=== PATIENT | female | born 1960 | race Caucasian/White ===

== ENCOUNTER 2017-04-19 22:54 | Inpatient (IN) | payer OTHER ==
[~2017-04-19] VITALS: Ht 167.6 cm; Wt 53.1 kg
--- NOTE | 2017-04-19 23:05 | NUR ---
Informed waiting has been performed.
--- NOTE | 2017-04-19 23:05 | NUR ---
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 -N/V/D. LNBM EARLIER TODAY. -URINARY S/S. REPORTS "I GOT OGIDA TOO". ONSET OF S/S AFTER EATING PASTA AND MEATBALL.
--- NOTE | 2017-04-19 23:28 | ED GI/GU/ABDOMINAL COMPLAINT ---
History of Present Illness General Chief Complaint: Abdominal Pain/Flank Pain Stated Complaint: ABD PAIN, X 3 HRS Source: patient Exam Limitations: no limitations Vital Signs & Intake/Output Vital Signs & Intake/Output Vital Signs Date Time Temp Pulse Resp B/P B/P Pulse O2 O2 Flow FiO2 Mean Ox Delivery Rate 04/20 0009 100 Room Air 04/19 2301 98.6 81 26 128/88 98 Room Air ED Intake and Output 04/20 0000 04/19 1200 Intake Total Output Total Balance Patient 117 lb Weight Weight Reported by Patient Measurement Method Allergies Uncoded Allergies: TURNIP (Severe, THROAT CLOSES 04/19/17) MACROBIN (Intermediate, "PNEUMONIA LIKE SYMPTOMS" 04/19/17) Reconcile Medications No Known Home Medications Triage Note: TRIAGE: PT TO ER WITH C/C DIFFUSE ABD PAIN, 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 -N/V/D. LNBM EARLIER TODAY. -URINARY S/S. REPORTS "I GOT OGIDA TOO". ONSET OF S/S AFTER EATING PASTA AND MEATBALL. Triage Nurses Notes Reviewed? yes ? n Is pt currently ? No Onset: Gradual Duration: hour(s): Timing: single episode today Quality/Severity: cramping Location: epigastric, generalized abdomen Radiation: no radiation Activities at Onset: eating Prior Abdominal Problems: none Modifying Factors: Worsens With: palpation, vomiting. Associated Symptoms: abdominal pain, nausea/vomiting HPI: 56 YO WOMAN presents with diffuse abdominal pain, nausea and vomiting after eating macarooni and meatballs. Her also notes that she had a bloody robert "which may have had some cayenne pepper in it." She has had the abdominal discomfort for the past 3 hours, and just began vomiting. She notes no diarrhea, fever, chills, dysuria, chest pain, shortness of breath. Last bowel movement was earlier this morning. Past History Travel History Traveled to [place] past 21 day No Medical History Any Pertinent Medical History? 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 No Review of Systems Review of Systems Constitutional: Reports: no symptoms. EENTM: Reports: no symptoms. Respiratory: Reports: no symptoms. Cardiovascular: Reports: no symptoms. GI: Reports: no symptoms. Genitourinary: Reports: no symptoms. Musculoskeletal: Reports: no symptoms. Skin: Reports: no symptoms. Neurological/Psychological: Reports: no symptoms. Hematologic/Endocrine: Reports: no symptoms. Immunologic/Allergic: Reports: no symptoms. All Other Systems: Reviewed and Negative Physical Exam Physical Exam General Appearance: well developed/nourished, moderate distress Head: atraumatic, normal appearance Eyes: Bilateral: normal appearance. Ears, Nose, Throat, Mouth: hearing grossly normal Neck: normal inspection, supple, full range of motion Respiratory: normal breath sounds, chest non-tender, no respiratory distress, quiet respiration, lungs clear Cardiovascular: regular rate/rhythm Gastrointestinal: decreased bowel sounds, but present. minimal distension, no focal abdominal tenderness. Back: normal inspection Extremities: normal range of motion Neurologic/Psych: no motor/sensory deficits, awake, alert, oriented x 3 Skin: intact, normal color, warm/dry Core Measures ACS in differential dx? No Severe Sepsis Present: No Septic Shock Present: No Progress Differential Diagnosis: gastroenteritis vs sbo vs food poisoning. Plan of Care: Orders Procedure Date/time Status Nothing by Mouth 04/20 B Active CBC WITHOUT DIFFERENTIAL 04/20 06 Active BASIC ELECTROLYTES PLUS BUN&CR 04/20 0600 Active Patient Data 04/20 0253 Active Admit to inpatient 04/20 0228 Active Add-on Test (ER Only) 04/20 0222 Active LACTIC ACID 04/20 0011 Complete ETHANOL 04/20 0011 Complete VTE Mechanical Prophylaxis 04/20 UNK Active Vital Signs 04/20 UNK Active Intake & Output 04/20 UNK Active TROPONIN LEVEL 04/19 2309 Complete LIPASE 04/19 2309 Complete HEPATIC FUNCTION PANEL 04/19 230 Complete CBC WITHOUT DIFFERENTIAL 04/19 230 Complete BASIC METABOLIC PANEL 04/19 2309 Complete AMYLASE 04/19 230 Complete EKG 04/19 230 Active Current Medications Sig/Rashaad Start time Last Medication Dose Stop Time Status Admin Pantoprazole Sodium 40 MG DAILY 04/20 1000 UNVr (Protonix) Heparin Sodium 5,000 UNIT Q8 04/20 0600 UNVr (Porcine) Acetaminophen 1,000 MG Q6P PRN 05/22 0300 UNVr (Ofirmev) N/A 1 UNIT (No Carrier) Dextrose/Sodium 1,000 ML Q8H 04/20 300 UNVr Chloride (D5W-1/2 Normal Saline 1000ML) Morphine Sulfate 2 MG Q4P PRN 04/20 300 UNVr (Morphine) Morphine Sulfate 4 MG Q4P PRN 04/20 300 UNVr (Morphine) Ondansetron HCl 4 MG Q6P PRN 04/20 300 UNVr (Zofran) Promethazine HCl 12.5 MG Q6P PRN 04/20 300 UNVr (Phenergen) 04/27 0259 Laboratory Tests 04/20/17 0011: Anion Gap 13, Estimated GFR > 60, BUN/Creatinine Ratio 25.7 H, Glucose 94, Lactic Acid 1.7, Calcium 9.6, Total Bilirubin 0.7, Direct Bilirubin 0.4, AST 39 H, ALT 43, Alkaline Phosphatase 47, Troponin I < 0.01, Total Protein 7.7, Albumin 4.6, Amylase 75, Lipase 121, CBC w Diff NO MAN DIFF REQ, RBC 4.28, MCV 91.4, MCH 30.7, RDW 12.8, MPV 10.4, Gran % 71.4, Lymphocytes % 20.6, Monocytes % 4.9, Eosinophils % 2.8, Basophils % 0.3, Absolute Granulocytes 8.2 H, Absolute Lymphocytes 2.4, Absolute Monocytes 0.6, Absolute Eosinophils 0.3, Absolute Basophils 0, PUBS MCHC 33.6, Serum Alcohol < 10.0 04/19/172328: Serum Alcohol Cancelled Diagnostic Imaging: Viewed by Me: CT Scan. Discussed w/RAD: CT Scan. Radiology Impression: abd/pelvic ct.... sbo Initial ED EKG: normal axis, normal intervals, normal p-waves, normal QRS complex, normal sinus rhythm Comments: PATIENT: JOSE IBRAHIM PRESENT AGE: 56 PATIENT ACCOUNT NO: [id number] : 60 LOCATION: [facility] ORDERING PHYSICIAN: ANAHI BROWNING MD SERVICE DATE: 04/19/170818 EXAM TYPE: CAT - CT ABD & PELVIS W/O IV CONTRAS EXAMINATION: CT ABDOMEN AND PELVIS WITHOUT CONTRAST CLINICAL INFORMATION: Profuse abdominal pain and significant vomiting. COMPARISON: None available. TECHNIQUE: Multidetector volumetric imaging was performed from the superior aspect of the liver through the pubic symphysis. Sagittal and coronal reformatted images were obtained on the technologist's workstation. FINDINGS: There are multiple dilated fluid-filled loops of small bowel within the central and lower abdomen and there is a transition point to relatively decompressed ileum within the lower abdomen, findings compatible with a small bowel obstruction. There is interloop edema. There is no free air. The appendix is normal. The lung bases are clear. Limited evaluation of the unenhanced liver, spleen, adrenal glands, gallbladder, and pancreas reveals no definite abnormality. The kidneys are symmetric in size without evidence of hydronephrosis or nephrolithiasis. The pelvic viscera are normal. No pelvic adenopathy. There is a small amount of free fluid within the pelvis. There are no acute osseous abnormalities. No significant soft tissue abnormality. IMPRESSION: There are multiple dilated fluid-filled loops of small bowel within the central and lower abdomen and there is a transition point to relatively decompressed ileum within the lower abdomen, findings compatible with a small bowel obstruction. There is interloop edema and there is a small amount of free fluid within the pelvis. DICTATED BY: MINGO ALCOCER MD DATE/TIME DICTATED:04/20/1745 LANDSCAPING CREW LEADER:TUTU DATE/TIME TRANSCRIBED:04/20/1745 CONFIDENTIAL, DO NOT COPY WITHOUT APPROPRIATE AUTHORIZATION. <Electronically signed in Other Vendor System> SIGNED BY: MINGO ALCOCER MD 04/20/17 0055 Departure Departure Disposition: STILL A PATIENT Condition: Stable Clinical Impression Primary Impression: SBO (small bowel obstruction) Referrals: MARY PLATT MD (PCP/Family) Departure Forms: Customer Survey General Discharge Information Prescriptions: Current Visit Scripts No Known Home Medications Comments 04/20/17, 1:15....discussed with dr. skinner... PA to evaluate Admission Note Spoke With: QIAN SKINNER MD Documentation of Exam: Documentation of any treatments & extenuating circumstances including Concerns Regarding Discharge (functional status, medication knowledge or non-compliance, living conditions, etc.) that warrant an admission rather than observation: pt with sbo.... requires iv fluids, bowel rest, electrolyte management, would consider ng tube if vomiting not well controlled with anti-emetics
--- NOTE | 2017-04-20 00:08 | NUR ---
THIS RN ESTABLISHED IV ACCESS IN PTS RH #20, LABS DRAWN AND SENT (SST, YU, BLUE, LAV) PT MEDICATED WITH 4MG ZOFRAN IV, NS LITER #1 BOLUS INFUSING, 40MG PROTONIX IV, AND A GI COCKTAIL PER EMAR.
--- NOTE | 2017-04-20 00:17 | NUR ---
PT TO CT SCAN VIA STRETCHER
[2017-04-20 00:27] LABS: ABSOLUTE BASOPHIL COUNT 0 /CUMM (0.0-0.2); ABSOLUTE EOSINOPHIL COUNT 0.3 /CUMM (0.0-0.7); ABSOLUTE GRANULOCYTE CT 8.2 /CUMM (1.4-6.5); ABSOLUTE LYMPH COUNT 2.4 /CUMM (1.2-3.4); ABSOLUTE MONOCYTE COUNT 0.6 /CUMM (0.10-0.60); BASOPHIL % 0.3 % (0.0-2.0); EOSINOPHIL % 2.8 % (0-5); GRANULOCYTE % 71.4 % (42.2-75.2); HEMATOCRIT 39.1 % (37-47); MEAN CORPUSCULAR HGB 30.7 PG (27.0-31.0); MEAN CORPUSCULAR HGB CONC 33.6 G/DL (33.0-37.0); MEAN CORPUSCULAR VOLUME 91.4 FL (81.0-99.0); MEAN PLATELET VOLUME 10.4 FL (7.4-10.4); PLATELET COUNT 206 /CUMM (130-400); RBC DISTRIBUTION WIDTH 12.8 % (11.5-14.5); RED BLOOD CELL CT 4.28 /CUMM (4.20-5.40); WHITE BLOOD CELL COUNT 11.4 /CUMM (4.8-10.8)
--- NOTE | 2017-04-20 00:39 | NUR ---
EKG DONE AND SHOWN TO DR. BROWNING.
--- NOTE | 2017-04-20 00:55 | CT SCAN REPORT ---
EXAMINATION: CT ABDOMEN AND PELVIS WITHOUT CONTRAST CLINICAL INFORMATION: Profuse abdominal pain and significant vomiting. COMPARISON: None available. TECHNIQUE: Multidetector volumetric imaging was performed from the superior aspect of the liver through the pubic symphysis. Sagittal and coronal reformatted images were obtained on the technologist's workstation. FINDINGS: There are multiple dilated fluid-filled loops of small bowel within the central and lower abdomen and there is a transition point to relatively decompressed ileum within the lower abdomen, findings compatible with a small bowel obstruction. There is interloop edema. There is no free air. The appendix is normal. The lung bases are clear. Limited evaluation of the unenhanced liver, spleen, adrenal glands, gallbladder, and pancreas reveals no definite abnormality. The kidneys are symmetric in size without evidence of hydronephrosis or nephrolithiasis. The pelvic viscera are normal. No pelvic adenopathy. There is a small amount of free fluid within the pelvis. There are no acute osseous abnormalities. No significant soft tissue abnormality. IMPRESSION: There are multiple dilated fluid-filled loops of small bowel within the central and lower abdomen and there is a transition point to relatively decompressed ileum within the lower abdomen, findings compatible with a small bowel obstruction. There is interloop edema and there is a small amount of free fluid within the pelvis.
--- NOTE | 2017-04-20 00:58 | NUR ---
PT CONTINUES TO VOMIT, THIS RN WILL INFORM DR BROWNING
--- NOTE | 2017-04-20 01:09 | NUR ---
PT MEDICATED WITH LITER #2 NS INFUSING BOLUS, PT HAS 25MG PHENERGEN INFUSING AT 75ML/HR IN A 100ML NS BAG PER EMAR. DR BROWNING IN FOR POC
--- NOTE | 2017-04-20 02:00 | NUR ---
SURGICAL PA IN FOR EVAL
--- NOTE | 2017-04-20 03:24 | Admission Core Measures ---
Admission Lab Results I reviewed the following labs: Laboratory Tests 04/20 04/19 0011 2329 Chemistry Sodium (137 - 145 mmol/L) 144 Potassium (3.5 - 5.1 mmol/L) 4.4 Chloride (98 - 107 mmol/L) 106 Carbon Dioxide (22 - 30 mmol/L) 26 Anion Gap (5 - 16) 13 BUN (7 - 17 mg/dL) 18 H Creatinine (0.5 - 1.0 mg/dL) 0.7 Estimated GFR (>60 ml/min) > 60 BUN/Creatinine Ratio (7 - 25 %) 25.7 H Glucose (65 - 99 mg/dL) 94 Lactic Acid (0.7 - 2.1 mmol/L) 1.7 Calcium (8.4 - 10.2 mg/dL) 9.6 Total Bilirubin (0.2 - 1.3 mg/dL) 0.7 Direct Bilirubin (< 0.4 mg/dL) 0.4 AST (14 - 36 U/L) 39 H ALT (9 - 52 U/L) 43 Alkaline Phosphatase (<127 U/L) 47 Troponin I (< 0.11 ng/ml) < 0.01 Total Protein (6.3 - 8.2 g/dL) 7.7 Albumin (3.5 - 5.0 g/dL) 4.6 Amylase (30 - 110 U/L) 75 Lipase (23 - 300 U/L) 121 Hematology CBC w Diff NO MAN DIFF REQ WBC (4.8 - 10.8 /CUMM) 11.4 H RBC (4.20 - 5.40 /CUMM) 4.28 Hgb (12.0 - 16.0 G/DL) 13.1 Hct (37 - 47 %) 39.1 MCV (81.0 - 99.0 FL) 91.4 MCH (27.0 - 31.0 PG) 30.7 RDW (11.5 - 14.5 %) 12.8 Plt Count (130 - 400 /CUMM) 206 MPV (7.4 - 10.4 FL) 10.4 Gran % (42.2 - 75.2 %) 71.4 Lymphocytes % (20.5 - 51.1 %) 20.6 Monocytes % (1.7 - 9.3 %) 4.9 Eosinophils % (0 - 5 %) 2.8 Basophils % (0.0 - 2.0 %) 0.3 Absolute Granulocytes (1.4 - 6.5 /CUMM) 8.2 H Absolute Lymphocytes (1.2 - 3.4 /CUMM) 2.4 Absolute Monocytes (0.10 - 0.60 /CUMM) 0.6 Absolute Eosinophils (0.0 - 0.7 /CUMM) 0.3 Absolute Basophils (0.0 - 0.2 /CUMM) 0 PUBS MCHC (33.0 - 37.0 G/DL) 33.6 Toxicology Serum Alcohol (<10 MG/DL) < 10.0 Cancelled Admission Meds I reviewed the following Meds: Current Medications Sig/Rashaad Start time Last Medication Dose Stop Time Status Admin Acetaminophen 1,000 MG Q6P PRN 04/20 030 UNVr (Ofirmev) N/A 1 UNIT (No Carrier) Dextrose/Sodium 1,000 ML Q8H 04/20 0300 UNVr Chloride (D5W-1/2 Normal Saline 1000ML) Heparin Sodium 5,000 UNIT Q8 04/20 0600 UNVr (Porcine) Morphine Sulfate 2 MG Q4P PRN 04/20 0300 UNVr (Morphine) Morphine Sulfate 4 MG Q4P PRN 04/20 0300 UNVr (Morphine) Ondansetron HCl 4 MG Q6P PRN 04/20 0300 UNVr (Zofran) Pantoprazole Sodium 40 MG DAILY 04/20 1000 UNVr (Protonix) Promethazine HCl 12.5 MG Q6P PRN 04/20 0300 UNVr (Phenergen) 04/27 0259 Acute Coronary Syndrome Inclusion Criteria ACS Diagnosis No Inpatient Core Measures LDL Reminder: If No, please order W/I first 24hr of stay Congestive Heart Failure Inclusion Criteria CHF Diagnosis No Cerebrovascular accident Inclusion Criteria CVA/TIA Diagnosis No Inpatient Core Measures Bedside Swallow Eval Reminder: If BSE failed, place ST order Antithrombotic Reminder: Order Antithrombotic Medication by end of day 2 Antithrombotic Reminder: Document Reason Antithrombotic Not ordered by end of day 2 AFIB/Flutter Reminder: If Present, add to problem list AFIB/Flutter Reminder: Order Anticoag Medication for pts with AFIB/Flutter Atherosclerosis Reminder: If Present, add to problem list LDL Reminder: If No, please order W/I first 24hr of stay PT Order Reminder: If No, please order Venous thromboembolism Inpatient Core Measures VTE Risk Factors: Acute medical illness, Age > 40 No Mech VTE prophylaxis d/t No contraindications No VTE Pharm Prophylaxis d/t No contraindications Inclusion Criteria - Per Current guidelines, there needs to be overlap - treatment for the first 5 days of Warfarin therapy. - Parenteral Anticoagulation (IV or SC) needs to be - given along with Warfarin therapy. VTE Diagnosis No VTE Type NONE VTE Confirmed by (Test) NONE Problem List As ranked by this Provider includes Assessment & Plan 1. SBO (small bowel obstruction) HOME MEDS Home Med List No Known Home Medications
--- NOTE | 2017-04-20 03:24 | History & Physical Pre-Op ---
BRITTANY ESPINOZA 04/20/17 0242: General Information and HPI MD Statement: I have seen and personally examined JOSE IBRAHIM and documented this H&P. The patient is a 56 year old F who presented with a patient stated chief complaint of abdominal pain and vomiting. Source of Information: patient, family Exam Limitations: pt is agitated and not willing to answer all questions History of Present Illness: Pt is a 56 yo F with no significant PMH who presented to the ED with c/o acute onset of abdominal pain last evening around dinner time. Her is present and states that she ate dinner around 7:30pm (meatballs, pasta, and eggplant) with the family (no one else is sick) and then started to experience abdominal pain, which progressively worsened over about 3 hours, prompting visit to the ED. Pain was >10/10 upon arrival and eventually associated with several episodes of emesis. She received a GI cocktail, zofran, and phenergan in the ED with some relief of symptoms. She has never had pain like this before. She does report an intentional weight loss of 10-15 lbs over the past couple of months. She uses some type of supplement in the mornings, but the name is not known. Most of this history was provided by pt's because the pt is uncooperative and very agitated during questioning. It sounds like her last BM was sometime yesterday ( according to prior reports to ED staff). She admits to some recent constipation, but cannot tell me when she passed gas last. +chills in the ED. Full review of systems was not obtainable due to lack of cooperation from the pt. 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 Full ROS was unobtainable due to pt's unwillingness to answer questions. Exam & Diagnostic Data Last 24 Hrs of Vital Signs/I&O Vital Signs Date Time Temp Pulse Resp B/P B/P Pulse O2 O2 Flow FiO2 Mean Ox Delivery Rate 04/20 0009 100 Room Air 04/19 2301 98.6 81 26 128/88 98 Room Air Intake & Output 04/20 0800 04/20 0000 04/19 1600 Intake Total Output Total Balance Patient 117 lb Weight Weight Reported by Patient Measurement Method Physical Exam: General: Pt is resting in the room, but arousable. She was recently medicated with phenergan and appears tired, but agitated when spoken to directly. She appears bothered by 1-2 simple important questions. Before answering, she asked multiple times "how many questions?" Abdomen: Soft, nondistended. There is generalized tenderness throughout the abdomen, but most prominent in the periumbilical region. Positive guarding. No rigidity. I did not appreciate any abdominal wall hernias or masses, but exam was limited due to pt's unwillingness to lay in the supine position for longer than about 1 minute. I couldn't appreciate any BS, but again, was not able to perform full exam. Pt refused the remainder of the exam. Last 24 Hrs of Labs/Sergio: Laboratory Tests 04/20/17 0011: Anion Gap 13, Estimated GFR > 60, BUN/Creatinine Ratio 25.7 H, Glucose 94, Lactic Acid 1.7, Calcium 9.6, Total Bilirubin 0.7, Direct Bilirubin 0.4, AST 39 H, ALT 43, Alkaline Phosphatase 47, Troponin I < 0.01, Total Protein 7.7, Albumin 4.6, Amylase 75, Lipase 121, CBC w Diff NO MAN DIFF REQ, RBC 4.28, MCV 91.4, MCH 30.7, RDW 12.8, MPV 10.4, Gran % 71.4, Lymphocytes % 20.6, Monocytes % 4.9, Eosinophils % 2.8, Basophils % 0.3, Absolute Granulocytes 8.2 H, Absolute Lymphocytes 2.4, Absolute Monocytes 0.6, Absolute Eosinophils 0.3, Absolute Basophils 0, PUBS MCHC 33.6, Serum Alcohol < 10.0 04/19/17 2329: Serum Alcohol Cancelled Diagnostic Data Other Results CT of abdomen and pelvis: There are multiple dilated fluid-filled loops of small bowel within the central and lower abdomen and there is a transition point to relatively decompressed ileum within the lower abdomen, findings compatible with a small bowel obstruction. There is interloop edema and there is a small amount of free fluid within the pelvis. Assessment/Plan Assessment/Plan: Pt is a 56 yo, otherwise healthy, F who presents with acute abdominal pain and emesis due to SBO. The source of SBO is unclear, as pt has no history of abdominal surgeries and no evidence of hernias. Her mother had some sort of abdominal mass removed, but details are unclear. Unfortunately, most of the history is given by pt's , who was very helpful, because the patient was not willing to participate thoroughly in interview and exam. Plan: -Admit pt to [facility], Dr. Bailey's service. -Bowel rest and IV fluid hydration. -Will hold off on ngt insertion for now as emesis seems to have resolved. I explained the potential need for placement in the near future if emesis returns. -Zofran as needed for nausea. Phenergan if zofran is not effective. -Protonix IV for GI ppx. -Monitor lytes, cbc. -No need for antibiotics. -This plan was discussed with Dr. Bailey, who agrees and will see the patient later this morning. -I also discussed the possible causes of SBO with pt's , including but not limited to adhesions, hernias, mass, Meckel's diverticulum, etc. He understands that conservative treatment will be attempted, but if symptoms persist, she may require surgical exploration. As Ranked By This Provider Problem List: 1. SBO (small bowel obstruction) QIAN BAILEY MD 04/20/17 1057: General Information and HPI Allergies/Medications Allergies: Coded Allergies: nitrofurantoin (From MACROBID) (Intermediate, FLU LIKE SYMPTOMS 04/20/17) Uncoded Allergies: TURNIP (Severe, THROAT CLOSES 04/19/17) Attending MD Review Statement Attending Statement Attending MD Statement: examined this patient, discuss w/resident/PA/HISTOLOGY TECHNICIAN, reviewed images Attending Assessment/Plan: 56yo woman without prior abdominal surgery presents with acute onset of abdominal pain and vomiting. CT shows findings concerning for intestinal obstruction, etiology indeterminant. Currently the majority of her symptoms have resolved, therefore emergent exploration is not warranted. Continue bowel rest, hydration and serial examination.
--- NOTE | 2017-04-20 03:40 | NUR ---
VSS, THIS RN ADMINISTERED D5W 1/2 NS INFUSING AT 125MLHR.
--- NOTE | 2017-04-20 03:51 | NUR ---
PT ASSIGNED TO [place] [id number]
--- NOTE | 2017-04-20 03:55 | NUR ---
REPORT GIVEN TO PRETTY BROCK. PT WILL BE TRANSPORTED SHORTLY
[2017-04-20 04:18] VITALS: BP 142/82
[2017-04-20 07:15] VITALS: BP 130/82
[2017-04-20 08:55] LABS: ABSOLUTE BASOPHIL COUNT 0 /CUMM (0.0-0.2); ABSOLUTE EOSINOPHIL COUNT 0 /CUMM (0.0-0.7); ABSOLUTE GRANULOCYTE CT 5.3 /CUMM (1.4-6.5); ABSOLUTE LYMPH COUNT 1.1 /CUMM (1.2-3.4); ABSOLUTE MONOCYTE COUNT 0.4 /CUMM (0.10-0.60); BASOPHIL % 0.4 % (0.0-2.0); EOSINOPHIL % 0.5 % (0-5); GRANULOCYTE % 76.4 % (42.2-75.2); MEAN CORPUSCULAR HGB 31.5 PG (27.0-31.0); MEAN CORPUSCULAR HGB CONC 33.9 G/DL (33.0-37.0); MEAN CORPUSCULAR VOLUME 92.9 FL (81.0-99.0); MEAN PLATELET VOLUME 10.8 FL (7.4-10.4); PLATELET COUNT 163 /CUMM (130-400); RBC DISTRIBUTION WIDTH 12.9 % (11.5-14.5); WHITE BLOOD CELL COUNT 6.9 /CUMM (4.8-10.8)
[2017-04-20 09:06] LABS: HEMATOCRIT 33.5 % (37-47)
--- NOTE | 2017-04-20 10:04 | Cons- Medical ---
General Information and HPI Consulting Request Date of Consult: 04/20/17 Requested By: HERRERA HIDALGO,QIAN Chavira Reason for Consult: Medical comanagement Source of Information: patient, family, old records Exam Limitations: no limitations History of Present Illness: 56-year-old female with no past medical history and well-known to us initially presented with complaints of acute abdominal pain after having her dinner last night with her . CAT scan abdomen suggested small bowel obstruction however patient does not have any history of GI surgery or small bowel obstruction in the past. She reports having a bowel movement yesterday also she does complain of hard stools. At this point she is being monitored conservatively by surgery with bowel rest and IV fluids. Allergies/Medications Allergies: Coded Allergies: nitrofurantoin (From MACROBID) (Intermediate, FLU LIKE SYMPTOMS 04/20/17) Uncoded Allergies: TURNIP (Severe, THROAT CLOSES 04/19/17) Home Med List: No Known Home Medications Current Medications: Current Medications Sig/Rashaad Start time Last Medication Dose Route Stop Time Status Admin Acetaminophen 1,000 MG Q6P PRN 04/20 0300 AC N/A 1 UNIT IV Dextrose/Sodium 1,000 ML Q8H 04/20 0300 AC 04/20 Chloride IV 0340 Heparin Sodium 5,000 UNIT Q8 04/20 0600 AC 04/20 (Porcine) SC 0638 Morphine Sulfate 2 MG Q4P PRN 04/20 0300 AC IV Morphine Sulfate 4 MG Q4P PRN 04/20 0300 AC IV Ondansetron HCl 4 MG Q6P PRN 04/20 0300 AC IV Ondansetron HCl 0 .STK-MED ONE 04/19 2347 DC .ROUTE Ondansetron HCl 4 MG ONCE ONE 04/19 2330 DC 04/20 IV 04/19 2331 0016 Pantoprazole Sodium 40 MG DAILY 04/20 1000 AC 04/20 IV 0913 Pantoprazole Sodium 0 .STK-MED ONE 04/19 2347 DC IV Pantoprazole Sodium 40 MG ONCE ONE 04/19 233 DC 04/20 IV 04/19 2331 0016 Promethazine HCl 12.5 MG Q6P PRN 04/20 0300 AC IV 04/27 0259 Promethazine HCl 25 MG ONCE ONE 04/20 0115 DC 04/20 IV 04/20 011 0110 Promethazine HCl 0 .STK-MED ONE 04/20 0109 DC .ROUTE Sodium Chloride 1,000 ML BOLUS ONE 04/20 0115 DC 04/20 IV 04/20 0214 0105 Sodium Chloride 1,000 ML BOLUS ONE 04/19 2330 DC 04/20 IV 04/20 0029 0016 Review of Systems Review of Systems Constitutional: Denies: no symptoms, see HPI, chills, diaphoresis, fever, malaise, weakness, unexplained weight loss. Cardiovascular: Denies: no symptoms, see HPI, chest pain, edema, orthopena, palpitations, peripheral edema, syncope. Respiratory: Denies: no symptoms, see HPI, cough, hemoptysis, orthopnea, short of breath, sputum production, stridor, wheezing. GI: Reports: abdominal pain. Musculoskeletal: Denies: no symptoms, see HPI, back pain, gout, joint pain, joint swelling, muscle pain, muscle stiffness, neck pain. Skin: Denies: no symptoms, see HPI, cysts, change in skin color, change in hair/nails, dryness, erythema, jaundice, lesions, lymphangitis, lumps, moles, rash. Past History Travel History Traveled to [place] past 21 day No Medical History Blood Transfusion Hx: No Neurological: NONE EENT: NONE Cardiovascular: NONE Respiratory: NONE Gastrointestinal: NONE Hepatic: NONE Renal: NONE Musculoskeletal: NASAL FX Psychiatric: NONE Endocrine: NONE Blood Disorders: NONE Cancer(s): NONE DEGREASER/Reproductive: NONE Surgical History Surgical History: rhinoplasty Psychosocial History Where Do You Live? Home Services at Home: None Smoking Status: Never Smoked ETOH Use: occasional use Illicit Drug Use: denies illicit drug use Exam & Diagnostic Data Last 24 Hrs of Vital Signs/I&O Vital Signs Date Time Temp Pulse Resp B/P B/P Pulse O2 O2 Flow FiO2 Mean Ox Delivery Rate 04/20 0715 98.6 65 18 130/82 96 Room Air 04/20 0418 98.8 76 18 142/82 94 Room Air 04/20 0339 98.8 75 18 108/60 100 Room Air 04/20 0009 100 Room Air 04/19 2301 98.6 81 26 128/88 98 Room Air Intake & Output 04/20 1600 04/20 0800 04/20 0000 Intake Total 250 Output Total Balance 250 Intake, IV 250 Patient 53.07 kg 53.07 kg Weight Weight Estimated Reported by Patient Measurement Method Physical Exam General Appearance: lethargic Respiratory: normal breath sounds, chest non-tender, lungs clear Cardiovascular: regular rate/rhythm Gastrointestinal: soft, abnormal bowel sounds, tenderness Extremities: normal inspection, no edema Last 24 Hrs of Labs/Sergio: Laboratory Tests 04/20/17 0650: Anion Gap 7, Estimated GFR > 60, BUN/Creatinine Ratio 18.6, CBC w Diff NO MAN DIFF REQ, RBC 3.60 L, MCV 92.9, MCH 31.5 H, RDW 12.9, MPV 10.8 H, Gran % 76.4 H, Lymphocytes % 16.3 L, Monocytes % 6.4, Eosinophils % 0.5, Basophils % 0.4, Absolute Granulocytes 5.3, Absolute Lymphocytes 1.1 L, Absolute Monocytes 0.4, Absolute Eosinophils 0, Absolute Basophils 0, PUBS MCHC 33.9 04/20/17 0011: Anion Gap 13, Estimated GFR > 60, BUN/Creatinine Ratio 25.7 H, Glucose 94, Lactic Acid 1.7, Calcium 9.6, Total Bilirubin 0.7, Direct Bilirubin 0.4, AST 39 H, ALT 43, Alkaline Phosphatase 47, Troponin I < 0.01, Total Protein 7.7, Albumin 4.6, Amylase 75, Lipase 121, CBC w Diff NO MAN DIFF REQ, RBC 4.28, MCV 91.4, MCH 30.7, RDW 12.8, MPV 10.4, Gran % 71.4, Lymphocytes % 20.6, Monocytes % 4.9, Eosinophils % 2.8, Basophils % 0.3, Absolute Granulocytes 8.2 H, Absolute Lymphocytes 2.4, Absolute Monocytes 0.6, Absolute Eosinophils 0.3, Absolute Basophils 0, PUBS MCHC 33.6, Serum Alcohol < 10.0 04/19/17 2329: Serum Alcohol Cancelled Assessment/Plan Assessment/Plan 56-year-old female with no past medical history and well-known to us initially presented with complaints of acute abdominal pain after having her dinner last night with her . CAT scan abdomen suggested small bowel obstruction however patient does not have any history of GI surgery or small bowel obstruction in the past. She reports having a bowel movement yesterday but complain of hard stools. At this point she is being monitored conservatively by surgery with bowel rest and IV fluids. She does have minimal bowel sounds and minimal pain on evaluation. It appears she may have clinically improved. Leukocytosis on presentation has improved and dropped hemoglobin is likely dilutional. Plan Repeat abdominal x-ray Continue gentle hydration Follow off antibiotics Nothing by mouth Morphine when necessary pain DVT prophylaxis Problem List: 1. SBO (small bowel obstruction) Copies To: HERRERA HIDALGO,QIAN Chavira Consult Acknowledgment - Thank you for your consult request.
--- NOTE | 2017-04-20 12:22 | RADIOLOGY REPORT ---
EXAMINATION: XR ABDOMEN MULTIPLE VIEWS CLINICAL INDICATION: Abdominal pain, vomiting. COMPARISON: None TECHNIQUE: Supine, upright views of the abdomen and pelvis, total of 2 images. FINDINGS: Significant fecal residual is noted within the large bowel. There is no superimposed abnormal bowel dilatation, air-fluid levels suggestive of obstruction present. There is no free intraperitoneal air visualized. Multiple presumed phleboliths are noted within the pelvis (left greater than right). IMPRESSION: No radiographic evidence of any bowel obstruction or perforation is present. Significant fecal residual is noted within the large bowel.
[2017-04-20 14:49] VITALS: BP 118/70
[2017-04-20 22:27] VITALS: BP 110/64
[2017-04-21 06:10] VITALS: BP 110/72
--- NOTE | 2017-04-21 07:19 | PN- General Surgery ---
Subjective Subjective: The patient was seen this morning. She reports feeling much better than before denies any current abdominal pain. She is tolerating a clear liquid diet without nausea. She is passing some flatus but is attempted a bowel movement. She also complains of feeling puffy around her eyes and in her hands. She has no other complaints at the current time and denies any hiccuping or belching. Objective Vital Signs and I&Os Vital Signs Date Time Temp Pulse Resp B/P B/P Pulse O2 O2 Flow FiO2 Mean Ox Delivery Rate 04/21 0610 98.3 51 22 110/72 97 Room Air 04/20 2227 98.4 57 20 110/64 95 Room Air 04/20 1449 98.8 60 18 118/70 95 Room Air Intake & Output 04/21 0804/21 0000 04/20 1600 04/20 0800 04/20 0000 04/19 1600 Intake Total 1480 900 750 250 Output Total Balance 1480 900 750 250 Intake, IV 1000 300 750 250 Intake, Oral 480 600 0 Patient 117 lb 117 lb Weight Weight Estimated Reported by Patient Measurement Method Physical Exam: Gen.: Alert and in no obvious distress Skin: Warm and dry Abdomen: Soft, nontender, nondistended, bowel sounds positive. Extremities: Bilateral lower extremities are warm without calf tenderness or significant edema. Assessment/Plan Assessment/Plan Assessment: 56-year-old female being conservatively managed for small bowel obstruction which appears to be improving. Plan: Hep-Lock IV fluids Advance to a regular diet Follow-up morning laboratory studies Reduce PRN pain medications Dulcolax suppository 1 Out of bed and ambulate GI and DVT prophylaxis Possible discharge later today if tolerates diet and bowel function improves Core Measures/Miscellaneous Venous Thromboembolism VTE Risk Factors: Age > 40 VTE Contraindications: No Contraindications VTE Diagnosis: No VTE Type: NONE VTE Confirmed by (Test): NONE Beta Ela Is Beta Ela a Home Med? No Antibiotics Is Patient on Antibiotics? No
[2017-04-21 08:54] LABS: ABSOLUTE BASOPHIL COUNT 0 /CUMM (0.0-0.2); ABSOLUTE EOSINOPHIL COUNT 0.2 /CUMM (0.0-0.7); ABSOLUTE GRANULOCYTE CT 2.2 /CUMM (1.4-6.5); ABSOLUTE MONOCYTE COUNT 0.3 /CUMM (0.10-0.60); BASOPHIL % 0.7 % (0.0-2.0); EOSINOPHIL % 3.9 % (0-5); HEMATOCRIT 30.9 % (37-47); MEAN CORPUSCULAR HGB 31.9 PG (27.0-31.0); MEAN CORPUSCULAR HGB CONC 33.9 G/DL (33.0-37.0); MEAN CORPUSCULAR VOLUME 94.2 FL (81.0-99.0); PLATELET COUNT 134 /CUMM (130-400); RED BLOOD CELL CT 3.28 /CUMM (4.20-5.40); WHITE BLOOD CELL COUNT 4.7 /CUMM (4.8-10.8)
--- NOTE | 2017-04-21 09:56 | PN- Medicine Consult ---
Assessment/Plan Assessment/Plan Assessment: Patient clinically improved with almost complete resolution of small bowel obstruction. She tolerated the first and had a small bowel movement this morning. X-rays suggest distal colon stool. Patient is otherwise improved and agree with plan to discharge if she is able to tolerate oral diet. Plan: Advance diet Discontinue pain meds Suppository Agree for discharge later today Problem List: 1. SBO (small bowel obstruction) Subjective Subjective: Patient has no complaints except for some constipation. Review of Systems Constitutional: Denies: no symptoms, see HPI, chills, diaphoresis, fever, malaise, weakness, unexplained weight loss. Cardiovascular: Denies: no symptoms, see HPI, chest pain, edema, orthopena, palpitations, peripheral edema, syncope. Respiratory: Denies: no symptoms, see HPI, cough, hemoptysis, orthopnea, short of breath, sputum production, stridor, wheezing. Gastrointestinal: Reports: constipation. Denies: no symptoms, see HPI, abdominal pain, bloating, diarrhea, distention, bowel incontinence, melena, nausea, bloody stool, changes in stool, vomiting, steatorrhea. Genitourinary: Denies: no symptoms, see HPI, discharge, dysuria, frequency, hematuria, hesitation, nocturia, pain, urgency. Musculoskeletal: Denies: no symptoms, see HPI, back pain, gout, joint pain, joint swelling, muscle pain, muscle stiffness, neck pain. Objective Last 24 Hrs of Vital Signs/I&O Vital Signs Date Time Temp Pulse Resp B/P B/P Pulse O2 O2 Flow FiO2 Mean Ox Delivery Rate 04/21 0610 98.3 51 22 110/72 97 Room Air 04/20 2227 98.4 57 20 110/64 95 Room Air 04/20 1449 98.8 60 18 118/70 95 Room Air Intake & Output 04/21 1600 04/21 0800 04/21 0000 Intake Total 1480 900 Output Total Balance 1480 900 Intake, IV 1000 300 Intake, Oral 480 600 Physical Exam General Appearance: alert, awake, comfortable Cardiovascular: regular rate/rhythm Respiratory: normal breath sounds, chest non-tender Abdomen: normal bowel sounds, soft, non-tender Extremities: no edema Current Medications: Current Medications Sig/Rashaad Start time Last Medication Dose Route Stop Time Status Admin Acetaminophen 1,000 MG Q6P PRN 04/20 0300 AC N/A 1 UNIT IV Bisacodyl 10 MG ONCE ONE 04/21 0715 DC 04/21 RI 04/21 0716 0932 Dextrose/Sodium 1,000 ML Q8H 04/20 030 DC 04/21 Chloride IV 0314 Heparin Sodium 5,000 UNIT Q8 04/20 0600 AC 04/21 (Porcine) SC 0528 Morphine Sulfate 2 MG Q4P PRN 04/20 0300 AC 04/21 IV 0354 Morphine Sulfate 4 MG Q4P PRN 04/20 030 DC IV Ondansetron HCl 4 MG Q6P PRN 04/20 030 AC IV Pantoprazole Sodium 40 MG DAILY 04/20 1000 AC 04/21 IV 0930 Promethazine HCl 12.5 MG Q6P PRN 04/20 030 AC IV 04/27 0259 Results Last 24 Hrs Lab/Sergio Results: Laboratory Tests 04/21/17 0640: Anion Gap 6, Estimated GFR > 60, BUN/Creatinine Ratio 11.4, CBC w Diff NO MAN DIFF REQ, RBC 3.28 L, MCV 94.2, MCH 31.9 H, RDW 13.0, MPV 11.0 H, Gran % 47.0 , Lymphocytes % 41.3, Monocytes % 7.1, Eosinophils % 3.9, Basophils % 0.7, Absolute Granulocytes 2.2, Absolute Lymphocytes 2.0, Absolute Monocytes 0.3, Absolute Eosinophils 0.2, Absolute Basophils 0, PUBS MCHC 33.9
--- NOTE | 2017-04-21 10:59 | Patient Discharge Instructions ---
Discharge Instructions General Discharge Information You were seen/treated for: small bowel obstruction You had these procedures: bowel rest / iv fluids Watch for these problems: abdominal pain, nausea/vomiting, bloating Diet Continue normal diet: Yes Recommended Diet: Regular Additional DIET Information: as tolerated Activity Full Activity/No Limits: Yes Activity Self Limited: Yes Acute Coronary Syndrome Inclusion Criteria At DC or during hospital stay patient has or had the following: ACS DIAGNOSIS No Discharge Core Measures Meds if any: Prescribed or Continued at Discharge Meds if any: NOT Prescribed or Continued at Discharge Congestive Heart Failure Inclusion Criteria At DC or during hospital stay patient has or had the following: CHF DIAGNOSIS No Discharge Core Measures Meds if any: Prescribed or Continued at Discharge Meds if any: NOT Prescribed or Continued at Discharge Cerebrovascular accident Inclusion Criteria At DC or during hospital stay patient has or had the following: CVA/TIA Diagnosis No Discharge Core Measures Meds if any: Prescribed or Continued at Discharge Meds if any: NOT Prescribed or Continued at Discharge Venous thromboembolism Inclusion Criteria VTE Diagnosis No VTE Type NONE VTE Confirmed by (Test) NONE Discharge Core Measures - Per Current guidelines, there needs to be overlap - treatment for the first 5 days of Warfarin therapy. - If discharged on Warfarin prior to 5 days of - overlap therapy, the patient will need to be - assessed for post discharge needs including - *Post discharge parental anticoagulation - *Warfarin and/or parental anticoagulation education - *Follow up date to check INR post discharge At least 5 days overlap therapy as Inpatient No Meds if any: Prescribed or Continued at Discharge Note: Overlap Therapy is Warfarin and Anticoagulant Meds if any: NOT Prescribed or Continued at Discharge
--- NOTE | 2017-04-21 13:10 | Surg Short-stay <48hrs Dis Sum ---
Visit Information Visit Dates Admission Date: 04/20/17 Discharge Date: 04/21/17 Surgical Short Stay DC Summary Admission Diagnosis: SBO Final Diagnosis: SAME Procedure(s): NONE Summary/Significant Findings: SBO RESOLVED WITH MEDICAL MANAGEMENT Condition at Discharge: GOOD Discharge Disposition: home or self care Discharge instructions provided to patient/family: Yes Post discharge follow-up plan: PCP
== END 2017-04-21 13:07 | DRG 390 ==
LOC: ERH 22:54 → ERHI 04-20 02:28 → ENRESERV 04-20 03:32 → 2NB 04-20 04:05 → ENPENDDIS 04-21 11:11 → 2NB 04-21 13:07
PROVIDERS: Nurse Practitioner; Pediatrics; Physician Assistant Surgical; ADMIT Surgery
DX: K56.60 Unspecified intestinal obstruction (principal); D72.829 Elevated white blood cell count, unspecified; R11.10 Vomiting, unspecified
CPT/HCPCS: 2NBP; 36415; 74020; 74176; 82436; 93005; 93010; 96361; 96374; 96375; G0480; J1644; J2405; J2550; J7042